=== PATIENT | female | born 1955 | race Two or more races ===

== ENCOUNTER 2019-03-28 11:39 | Inpatient (IN) | payer MEDICARE, OTHER | END 2019-04-07 15:00 | disposition home or self-care (01) | LOC: ER 11:39 → TELE 11:40 → TELE-CENTR 15:25 | PROC: 30230N1 Transfusion of Nonautologous Red Blood Cells into Peripheral Vein, Open Approach (ICD-10-PCS; principal; 2019-04-05 09:44) | PROC: 0FB13ZX Excision of Right Lobe Liver, Percutaneous Approach, Diagnostic (ICD-10-PCS; 2019-04-05 09:44) | PROC: 0JH63WZ Insertion of Totally Implantable Vascular Access Device into Chest Subcutaneous Tissue and Fascia, Percutaneous Approach (ICD-10-PCS; 2019-04-05 09:44) | DX: K56.609 Unspecified intestinal obstruction, unspecified as to partial versus complete obstruction (principal); C18.2 Malignant neoplasm of ascending colon; C78.7 Secondary malignant neoplasm of liver and intrahepatic bile duct; E87.1 Hypo-osmolality and hyponatremia; J90 Pleural effusion, not elsewhere classified; K80.51 Calculus of bile duct without cholangitis or cholecystitis with obstruction; C78.00 Secondary malignant neoplasm of unspecified lung; C78.6 Secondary malignant neoplasm of retroperitoneum and peritoneum; I10 Essential (primary) hypertension; E11.9 Type 2 diabetes mellitus without complications; Z85.09 Personal history of malignant neoplasm of other digestive organs; D50.9 Iron deficiency anemia, unspecified ==

== ENCOUNTER 2019-05-07 16:52 | Emergency (ER) | payer MEDICARE, OTHER ==
[~2019-05-07] VITALS: Ht 165.1 cm; Wt 65.8 kg
[~2019-05-07 16:52] MED LIST: AMLO5TAB15 PO; ASPI1TAB19 PO; LISI-646 PO; METF-370 PO
[2019-05-07] MEDS ORDERED: CALCIUM CHLOR(10%) 100MG/ML 10ML SYRINGE IV ONE (16:53)
[2019-05-07] MEDS ORDERED: EPINEPHrine HCL 1 MG/10 ML SYRG IV ONE (16:53)
[2019-05-07 17:12] VITALS: BP 182/100
[2019-05-07] MEDS ORDERED: LIDOCAINE 2%HCL (LOCAL ANESTH.) INJ 20ML MDV ONE (17:18)
[2019-05-07] MEDS ORDERED: IOHEXOL 350 MG/ML 100ML IJ ONE (17:18)
[2019-05-07] MEDS ORDERED: SODIUM CHL 0.9% 50 ML ONE (17:18)
[2019-05-07] MEDS ORDERED: ANGIOMAX 250 MG VIAL IV ONE (17:18)
[2019-05-07] MEDS ORDERED: HEPARIN IN NS 1000Units/500mL 0 ML ONE (17:19)
[2019-05-07 17:20] VITALS: BP 136/115
[2019-05-07] MEDS ORDERED: MIDAZOLAM DRIP 50 mg/50mL 50 ML IV ONE (17:34)
[2019-05-07] MEDS ORDERED: SODIUM CHLORIDE 0.9% 1,000 ML IV ONE (17:34)
[2019-05-07] MEDS ORDERED: EPINEPHrine HCL 1 MG/10 ML SYRG ONE (17:49)
[2019-05-07] MEDS ORDERED: NOREPINEPHRINE 8 MG/250ML KIT 250 ML IV ONE (17:52)
[2019-05-07] MEDS ORDERED: MIDAZOLAM DRIP 50 mg/50mL 50 ML IV SCH (18:01)
[2019-05-07 18:06] LABS: Basophils # (auto) 0 uL; Eosinophils # (auto) 0 uL; Hemoglobin 8.9 g/dL (12.2-16.2); Neutrophils # (auto) 0 uL
[2019-05-07 18:08] LABS: Eosinophils % (auto) 0.2 % (0.0-7.0); Hematocrit 32.7 % (36.0-46.0); Mean Corpuscular Hemoglobin 25.5 pg (28.0-32.0); Mean Corpuscular Hgb Conc. 27.3 g/dL (32.0-36.0); Mean Corpuscular Volume 93.5 fL (80.0-100.0); Monocytes # (auto) 0.1 uL; Monocytes % (auto) 7.9 % (0.0-12.0); Neutrophils % (auto) 2.2 % (37.0-80.0); Platelet Count (auto) 67 10^3/uL (140-450)
[2019-05-07] MEDS ORDERED: NOREPINEPHRINE 8 MG/250ML KIT 250 ML IV SCH (18:15)
[2019-05-07 18:17] LABS: Albumin 1.3 g/dL (3.4-5.0); Calcium 11.6 mg/dL (8.5-10.1); Magnesium 2.6 mg/dL (1.6-2.6)
[2019-05-07 18:26] LABS: BUN/Creatinine Ratio 26.9; Bilirubin, Total 0.5 mg/dL (0.2-1.0); Total Protein 5.1 g/dL (6.4-8.2)
[2019-05-07 18:33] LABS: Potassium 5.6 mmol/L (3.5-5.1)
[2019-05-07 18:41] LABS: INR 2.19 (0.9-1.15); Partial Thromboplastin Time 65.8 sec (23.64-32.05)
[2019-05-07 18:53] LABS: Lymphocytes % (auto) 89.7 % (10.0-50.0); Nucleated Red Blood Cells % 39.7 %; Red Cell Distribution Width 37.3 % (11.8-14.3)
[2019-05-07 18:54] LABS: White Blood Cell 1.1 10^3/uL (4.4-10.8)
== END 2019-05-07 21:31 | disposition expired ==
LOC: EDBD 16:52 → ER 16:52
DX: I46.9 Cardiac arrest, cause unspecified (principal); I21.3 ST elevation (STEMI) myocardial infarction of unspecified site; C79.9 Secondary malignant neoplasm of unspecified site; K62.5 Hemorrhage of anus and rectum
CPT/HCPCS: 31500; 36415; 36600; 71045; 80053; 82805; 82962; 83735; 83880; 84443; 84484; 85025; 85379; 85610; 85730; 87070; 87077; 87186; 87205; 92950; 99291; C1894; J0171; J0583; J2250; J7030; 94002; 94761